=== PATIENT | female | born 2000 | race Caucasian/White ===

== ENCOUNTER 2025-08-15 08:44 | Emergency (ER) | payer MEDICAID, SELFPAY ==
[2025-08-15 08:45] VITALS: BMI 27.4
[2025-08-15 09:14] VITALS: BP 118/90; PULSE 89; RESP 18; TEMP 36.9; O2SAT 99
--- NOTE | 2025-08-15 09:14 | EDNOTE_ITS ---
ED Ear RME/HPI General Chief complaint: Ear Stated complaint: LEFT EAR INFECTION x 3 DAYS, HAS NOT FILLED MEDS Time Seen by Provider: 08/15/25 09:07 Source: patient Arrival date/time: 08/15/25 08:44 25-year-old female with no known medical history presents to the emergency room with a chief complaint of left ear pain and drainage x 3 days Mode of arrival: ambulatory Limitations: no limitations Related Data Previous Rx's ?Medication ?Instructions ?Recorded amoxicillin 875 mg-potassium 1 tab PO BID 7 days #14 t abs 08/15/25 clavulanate 125 mg tablet ofloxacin 0.3 % ear drops 5 drp otic (ear) QDAY 7 days #5 mL 08/15/25 Allergies Allergy/AdvReac Type Severity Reaction Status Date / Time No Known Allergies Allergy Verified 08/15/25 08:47 Review of Systems Review of Systems Systems Reviewed: All systems reviewed, normal except as documented Constitutional Constitutional: Reports system reviewed and no additional complaints, except as documented, Denies fatigue, Denies fever(s), Denies headache(s) and Denies weakness Eyes Eyes: Reports system reviewed and no additional complaints, except as documented, Denies blurry vision and Denies change in vision ENT Ears, Nose, Mouth, and Throat: Reports system reviewed and no additional complaints, except as documented, Reports ear discharge, Reports otalgia, Denies headache(s), Denies nasal congestion, Denies throat swelling and Denies vertigo Cardiovascular Cardiovascular: Reports system reviewed and no additional complaints, except as documented, Denies chest pain, Denies dyspnea and Denies dyspnea on exertion Respiratory Respiratory: Reports system reviewed and no additional complaints, except as documented, Denies chest congestion, Denies cough, Denies dyspnea, Denies dyspnea on exertion and Denies wheezing Gastrointestinal Gastrointestinal: Reports system reviewed and no additional complaints, except as documented, Denies abdominal pain, Denies cramping, Denies nausea and Denies vomiting Genitourinary Genitourinary: Reports system reviewed and no additional complaints, except as documented Musculoskeletal Musculoskeletal: Reports system reviewed and no additional complaints, except as documented and Denies back pain Integumentary/Breasts Skin/Breast: Reports system reviewed and no additional complaints, except as documented and Denies wounds Neurologic Neurologic: Reports system reviewed and no additional complaints, except as documented, Denies confusion, Denies headache(s), Denies lack of coordination, Denies vertigo and Denies weakness Psychiatric Psychiatric: Reports system reviewed and no additional complaints, except as documented, Denies anxiety, Denies confusion, Denies depression, Denies paranoia, Denies suicidal ideation and Denies tactile hallucinations Endocrine Endocrine: Reports system reviewed and no additional complaints, except as documented and Denies fatigue Hematologic/Lymphatic Hematologic/Lymphatic: Reports system reviewed and no additional complaints, except as documented and Denies lymphadenopathy Allergic/Immunologic Allergic/Immunologic: Reports system reviewed and no additional complaints, except as documented, Denies throat swelling, Denies urticaria and Denies wheezing Past Medical History Social History SMOKING STATUS: Current every day smoker ED Exam General Limitations: Present no limitations General appearance: Present alert and in no apparent distress Head Head exam: Present atraumatic Eye Eye exam: Present normal appearance, PERRL and EOMI ENT ENT exam: Present normal exam, normal oropharynx and mucous membranes moist Expanded ENT Exam External ear exam: Present external tenderness TM/Canal exam: Left TM: erythema, bulging, effusion, canal discharge and canal tenderness Neck Neck exam: Present normal inspection, full ROM and trachea midline Chest Chest inspection: Present normal inspection and symmetric chest wall rise Respiratory Respiratory exam: Present normal lung sounds bilaterally Cardiovascular Cardiovascular exam: Present regular rate, normal rhythm and normal heart sounds Abdominal Exam Abdominal exam: Present soft and normal bowel sounds Extremities Exam Extremities exam: Present normal inspection and full ROM Back Exam Back exam: Present normal inspection and full ROM Neurological Exam Neurological exam: Present alert, oriented X3 and CN II-XII intact Psychiatric Psychiatric exam: Present normal affect and normal mood Skin Skin exam: Present warm, dry, intact and normal color Course Quality Measures none Orders Category Date Time Status cefTRIAXone [Rocephin] 1,000 mg Med 08/15/25 09:12 Discontinued Lidocaine 1% 20 ml [Xylocaine 1% 20 ML] 2.1 ml IM X1 Vital Signs Vital signs: Vital Signs Temperature 98.5 F 08/15/25 09:14 Pulse Rate 89 08/15/25 09:14 Respiratory Rate 18 08/15/25 09:14 Blood Pressure 118/90 H 08/15/25 09:14 Pulse Oximetry (%) 99 08/15/25 09:14 Oxygen Delivery Method Room Air 08/15/25 09:14 Ear MDM Narrative MDM Narrative:: 25-year-old female with no known medical history presents to the emergency room with a chief complaint of left ear pain and drainage x 3 days Patient is hemodynamically stable and in no apparent distress Physical examination shows a left-sided erythemic bulging tympanic membrane. There is also a lot of external ear canal tenderness in her canal appears to be closing and is only mildly open. A shot of Rocephin was given. Patient states she was seen by her primary care provider yesterday but did not moss picker her antibiotics. Patient was given another shot of Rocephin here and medication was sent to her pharmacy patient was given strict instructions to moss picker her antibiotics and begin to take them Patient was discharged and educated to follow-up with primary care provider in the next 24 to 48 hours and return to the emergency room for any evidence of worsening signs or symptoms Patient data External records reviewed:: [facility] previous records Clinical information provided by:: patient Social determinants that could affect healthcare access:: none Patient has the following chronic illnesses:: No chronic illness How is presenting disease/condition affected by chronic disease/condition?: no chronic disease Evaluation data The following diagnostics were reviewed and interpreted by me:: lab results and radiology exam(s) Lab and/or radiology exams considered but not ordered:: Labs and radiology exams considered and ordered Interpretation Summary: N/A Medications / Prescriptions Medications or Prescriptions considered but not ordered:: Medication given Medication administrations:: Medication Administration History Discontinued Medications Ceftriaxone Sodium 1,000 mg/ (Lidocaine HCl 2.1 ml) 0 mg IM X1 ONE Stop: 08/15/25 09:13 Medication given Consultations Consultation(s) initiated? (list below): No Diagnosis Ear Differential Diagnosis: otitis externa, otitis media and ruptured TM Most likely diagnosis given after review of the tests above:: Otitis media Admission Indicated Admission indicated?: not indicated Admission Request Was there a request for admission?: No Disposition Plan Disposition Plan: Discharge Discharge Attestation Discharge Attestation: The patient and all family members were given an opportunity to ask questions and understood the discharge instructions. Discharge instructions specifically effects, indications for sooner follow up or return to the emergency department, and the expected course of current diagnosis. Patient condition: Stable Discharge Plan Plan Patient Disposition: HOME (Self Care) Discharge Disposition comment: Stable Prescriptions/Referrals Prescriptions/Med Rec: New amoxicillin-pot clavulanate 875-125 mg tablet 1 tab PO BID 7 Days Qty: 14 0RF ofloxacin 0.3 % drops 5 drp otic (ear) QDAY 7 Days Qty: 5 0RF Problem List Clinical Impression: Otitis media Patient/Caregiver Discharge Instructions Education Materials: ED Otitis Media Antibiotic ... Additional Instructions: Please follow-up with your primary care provider next 24 to 48 hours Your findings are consistent with otitis media which is an infection of your left ear. Antibiotics are sent to your pharmacy please pick them up and take them as indicated For any evidence of worsening signs or symptoms return to the emergency room immediately Print Language: Tunisian Stand Alone Forms: [employer] Award Info., Work/School Release, Patient Portal Info Letter PA/QUALITY ASSURANCE SUPERVISOR TRIM Supervising Physician PA/QUALITY ASSURANCE SUPERVISOR TRIM Supervising Physician: Dr. Torres
[2025-08-15] MEDS: cefTRIAXone 1,000 MG, LIDOCAINE 1% 20 ML 2.1 ML IM (09:46)
== END 2025-08-15 10:07 | disposition home or self-care (01) ==
PROVIDERS: Emergency Provider Nurse Practitioner Family; PCP Family Medicine
DX: H66.92 Otitis media, unspecified, left ear (principal)
CPT/HCPCS: 96372; 99281; J0696; J3490